=== PATIENT | female | born 1945 | race Caucasian/White ===

== ENCOUNTER → 2018-09-15 15:38 | Outpatient (CLI) | payer MEDICARE, BC | END | disposition home or self-care (01) | LOC: D.MAMMO 15:38 | DX: Z12.31 Encounter for screening mammogram for malignant neoplasm of breast (principal) ==

== ENCOUNTER 2019-03-05 19:26 | Inpatient (IN) | payer MEDICARE ==
[~2019-03-05] VITALS: Ht 165.1 cm; Wt 113.4 kg
[2019-03-05] MEDS ORDERED: ULTRAM50 MG PO (19:49)
[2019-03-05] MEDS ORDERED: NAPROSYN500 MG PO (19:49)
[2019-03-05] MEDS ORDERED: GLYCOPYRROL PO (19:50)
[2019-03-05] MEDS ORDERED: COZAAR100 MG PO (19:50)
[2019-03-05] MEDS ORDERED: CATAPRES0.2 MG PO (19:50)
[2019-03-05] MEDS ORDERED: ASCORBIC ACID500 MG PO (19:51)
[2019-03-05] MEDS ORDERED: ZOCOR40 MG PO (19:51)
[2019-03-05 20:45] LABS: BASOPHILS 0.1 % (0-2); EOSINOPHILS 0 % (0-7); HEMATOCRIT 50.8 % (36.0-48.0); HEMOGLOBIN 17.4 g/dL (12-16); IMMATURE GRANULOCYTES 0.7 % (0-5); MCH 31.5 pg (26.0-34.0); MCHC 34.3 g/dL (31.0-37.0); MONOCYTES 5.1 % (2-11); NEUTROPHILS 82.1 % (40-80); PLATELET COUNT 217 10x3/uL (130-400); RBC 5.52 10x6/uL (4.00-5.40); RDW 13.3 % (11.5-14.5); WBC 15.2 10x3/uL (4.8-10.8)
[2019-03-05 20:53] LABS: ALBUMIN 3.7 g/dL (3.4-5.0); ANION GAP 20.3 mmol/L (8-16); BILIRUBIN - TOTAL 0.73 mg/dL (0.2-1.3); CALCIUM 10.3 mg/dL (8.5-10.1); CARBON DIOXIDE 22.7 mmol/L (21.0-32.0); CREATININE - SERUM 1.1 mg/dL (0.6-1.3); PROTEIN - SERUM 7.6 g/dL (6.4-8.2)
[2019-03-05 21:21] LABS: APPEARANCE CLEAR (CLEAR); BILIRUBIN NEGATIVE (NEGATIVE); COLOR YELLOW (YELLOW); GLUCOSE NEGATIVE (NEGATIVE); KETONE MODERATE mg/dL (NEGATIVE); NITRITE NEGATIVE (NEGATIVE); PROTEIN NEGATIVE (NEGATIVE); UROBILINOGEN NORMAL (NORMAL)
--- NOTE | 2019-03-05 21:42 | NUR ---
PT VOMITING, ORDER FOR ZOFRAN 8MG IV PER EDP DAVID.
--- NOTE | 2019-03-05 22:07 | NUR ---
PT TO RADIOLOGY.
--- NOTE | 2019-03-05 22:21 | NUR ---
PT RETURNED FROM RADIOLOGY.
--- NOTE | 2019-03-05 23:18 | NUR ---
PT GIVEN BLANKETS. DENIES ANY FURTHER NEEDS AT THIS TIME.
[2019-03-06 01:48] VITALS: BP 145/763
--- NOTE | 2019-03-06 02:18 | NUR ---
PT TO FLOOR VIA WHEELCHAIR. A/O X 4. UP AB CYNTHIA. FAMILY AT BEDSIDE. DENIES NAUSEA AND VOMITTING AT THIS TIME. IV TO L HAND WITH NS AND LEVAQUIN INFUSING. IV PATENT, NO REDNESS OR EDEMA NOTED. DRSG C/D/I. BREATHING EVEN AND UNLABORED. RM AIR. SKIN PINK, WARM, INTACT. KRISTINA SCARS TO BREAST. TELE APPLIED. DENIES FURTHER NEEDS AT THIS TIME. BED LOWERED AND LOCKED. CL IN REACH. WILL CTM.
[2019-03-06 02:23] VITALS: BP 145/73; BMI 41.6
[2019-03-06 07:23] VITALS: Ht 165.1 cm; Wt 113.4 kg
--- NOTE | 2019-03-06 07:27 | NUR ---
REPORT RECEIVED. WILL CONTINUE WITH POC. PT CURRENTLY LYING SUPINE. CALL LIGHT W/I REACH. PT IS AAO AND UP AD CYNTHIA. RR EVEN AND UNLABORED ON RA. NS INFUSING @100ML/HR VIA L.HAND PIV. NO S/S OF DISTRESS NOTED. PT DENIES ANY NEEDS. WILL CTM.
[2019-03-06 07:48] VITALS: BP 157/77
[2019-03-06 08:16] LABS: BASOPHILS 0.1 % (0-2); EOSINOPHILS 0 % (0-7); HEMOGLOBIN 15.3 g/dL (12-16); IMMATURE GRANULOCYTES 0.3 % (0-5); LYMPHOCYTES 11.4 % (15-50); MCH 31.5 pg (26.0-34.0); MCV 92.8 fL (80.0-100.0); MEAN PLATELET VOLUME 11.4 fL (7.4-10.4); MONOCYTES 7.9 % (2-11); NEUTROPHILS 80.3 % (40-80); RBC 4.85 10x6/uL (4.00-5.40); RDW 13.5 % (11.5-14.5); WBC 17.3 10x3/uL (4.8-10.8)
[2019-03-06 08:17] LABS: PLATELET COUNT 262 10x3/uL (130-400)
[2019-03-06 08:30] LABS: ALBUMIN 3.1 g/dL (3.4-5.0); ANION GAP 15.9 mmol/L (8-16); BILIRUBIN - TOTAL 0.56 mg/dL (0.2-1.3); CALCIUM 9.9 mg/dL (8.5-10.1); CREATININE - SERUM 1.1 mg/dL (0.6-1.3); MAGNESIUM - SERUM 1.5 mg/dL (1.8-2.4); POTASSIUM - SERUM 3.9 mmol/L (3.5-5.1); PROTEIN - SERUM 6.8 g/dL (6.4-8.2)
[2019-03-06 15:53] VITALS: BP 157/95
--- NOTE | 2019-03-06 19:26 | NUR ---
GREETED PATIENT AND INTRODUCED MYSELF. PATIENT IS LAYING IN BED AND DENIES ANY FURTHER NEEDS AT THIS TIME. CALL LIGHT IN REACH.
[2019-03-06 20:22] VITALS: BP 140/60
--- NOTE | 2019-03-06 21:35 | MORECARE ---
CASE MANAGEMENT DISCHARGE SUMMARY PATIENT: SANDRA MADRID UNIT: [id number] ADM DATE: 03/05/19 AGE: 73 : 45 SEX: F ROOM/BED: D.1201 AUTHOR: NATYDOC PHYSICIAN: REFERRING PHYSICIAN: KATI UMANA MD DATE OF SERVICE: 03/06/19 Discharge Plan Patient Name: SANDRA MADRID Facility: [facility]:[place] : 1945 Planned Disposition: Home Anticipated Discharge Date: Discharge Date: Expected LOS: Initial Reviewer: [email or web address] Initial Review Date: 03/06/2019 Generated: 03/06/19 10:35 pm Comments DCP- Discharge Planning Updated by [email or web address]: Mary Grace Miranda on 03/06/19 8:[address] Patient Name: SANDRA MADRID Admission Status: ER Accout number: [id number] Admission Date: 03-05-2019 : 1945 Admission Diagnosis:NAUSEA WITH VOMITING, UNSPECIFIED Attending: KATI UMANA Current LOS: 1 Anticipated DC Date: Planned Disposition: Home Primary Insurance: [employer] MEDICARE PPO or HMO Discharge Planning Comments: CM met with patient at bedside after explaining CM role and obtaining verbal consent. Patient lives at home alone and plans to return there upon discharge. Patient feels this would be a safe discharge. CM discussed availability / needs of home health and medical equipment. Patient denies any discharge needs at this time CM will continue to follow and assist as needed with discharge planning / needs. [place] Folder: Mary Grace Miranda DCPIA - Discharge Planning Initial Assessment Updated by [email or web address]: Mary Grace Miranda on 03/06/19 9:33 pm * Is the patient Alert and Oriented? Yes * How many steps to enter\exit or inside your home? * PCP LYNDSAY * Pharmacy [facility] * Preadmission Environment Home Alone * ADLs Independent * Other Equipment CANE * List name and contact numbers for known caregivers / representatives who currently or will assist patient after discharge: REJI MCCAIN-KOVSRS - NIECE- [phone] * Verbal permission to speak to the caregivers and representatives has been obtained from the patient. N/A * Community resources currently utilized None * Additional services required to return to the preadmission environment? No * Can the patient safely return to the preadmission environment? Yes * Has this patient been hospitalized within the prior 30 days at any hospital? No Patient Name: SANDRA MADRID Page [id number] at 2135 All edits/amendments must be made on the electronic document DICTATION DATE: 03/06/192133 CUTTING INSPECTOR: AMAIRANI 03/06/192133 RPT#: [id number] DC DATE: STATUS: ADM IN [facility] [address] [place] [address] END OF REPORT
[2019-03-07 00:40] VITALS: BP 131/44
[2019-03-07 04:00] VITALS: BP 137/65
[2019-03-07 08:46] VITALS: BP 111/42
--- NOTE | 2019-03-07 10:04 | NUR ---
MORNING ASSESSMENT COMPLETE. SEE ASSESSMENT FLOWSHEET FOR FURTHER DETAILS. PT LYING IN BED AAO X4 TO PERSON, PLACE, TIME, AND SITUATION. DENIES NEEDS AT THIS TIME. CL IN REACH. SIDE RAILS UP X3 FOR PT SAFETY. BED IN LOWEST POSITION.
--- NOTE | 2019-03-07 14:05 | HP ---
PATIENT: SANDRA MADRID MEDICAL RECORD: [id number] ACCOUNT: [id number] LOCATION:[facility] D.1201 : 45 ADMISSION DATE: 03/05/19 PCP: KATI UMANA MD HISTORY AND PHYSICAL EXAMINATION DATE OF ADMISSION: 03/05/2019 CHIEF COMPLAINT: Nausea, vomiting, diarrhea for 2 weeks. HISTORY OF PRESENT ILLNESS: This is a 73-year-old female who I follow for hypertension, hyperlipidemia, fibromyalgia. She states she went to her executive admin a few weeks ago for hyperhidrosis and he prescribed Robinul 2 mg twice a day. She started taking it and about 2 weeks ago she started having nausea, vomiting, and diarrhea. She had constipation before that and took some MiraLax and the constipation was resolved. Since then, she has been unable to hold things down due to nausea and vomiting. She was actively vomiting in the Emergency Department. Her white count was 15,200. Comprehensive metabolic panel and UA were okay. CT of the abdomen and pelvis, apparently there was a preliminary report of some colitis, although the final report by the radiologist said there was nothing acute. The patient was admitted. PAST MEDICAL HISTORY: Hypertension, hyperlipidemia, fibromyalgia, glaucoma, asthma/COPD. PAST SURGICAL HISTORY: Hysterectomy, appendectomy, cholecystectomy, breast reduction. ALLERGIES: DIONICIO INHIBITORS HAS CAUSED A COUGH. HABITS: No tobacco, alcohol or drugs. FAMILY HISTORY: Both parents are . HOME MEDICATIONS: Naproxen 500 mg 2 pills daily, losartan 100 mg daily, tramadol 50 mg 2 pills 4 times a day, clonidine 0.2 mg twice a day, simvastatin 40 mg once a day, Ventolin HFA 2 puffs every 4 to 6 hours p.r.n., Advair twice a day, latanoprost 0.005% eye drops both eyes bedtime, Timolol 0.5% eye drops once a day and she was prescribed Robinul 2 mg to take twice a day. SOCIAL HISTORY: She lives alone and is retired. REVIEW OF SYSTEMS: GENERAL: No major weight changes. HEENT: No particular sinus or allergy problems. RESPIRATORY: She has some reactive airway disease and takes Advair and Ventolin. CARDIAC: No history of coronary artery disease. GASTROINTESTINAL: No significant problems there. GENITOURINARY: No significant problems there. MUSCULOSKELETAL: She has fibromyalgia. NEUROLOGIC: No migraines or seizures. PSYCHIATRIC: No depression or melancholia. PHYSICAL EXAMINATION: VITAL SIGNS: Temperature 97.3, pulse 114, respirations 20, blood pressure HISTORY AND PHYSICAL [id number] SANDRA MADRID 173/75. GENERAL: She is awake and alert this morning. She does not appear in acute distress. SKIN: Warm and dry. HEENT: Grossly within normal limits. NECK: Supple. HEART: Regular rate and rhythm. LUNGS: Clear. ABDOMEN: There is some mild tenderness on the left side. No guarding, no rebound, no mass. EXTREMITIES: No edema. LABORATORY DATA: CBC showed a white count of 15,200, hemoglobin 17.4, hematocrit 50.8. Basic metabolic panel is all normal. Liver functions are normal. Urinalysis is normal. CT of abdomen and pelvis, final report shows nothing acute. ASSESSMENT: 1. Nausea, vomiting, diarrhea. 2. Dehydration. PLAN: IV fluids, clear liquids, stop the Robinul, continue her other usual home medications. Hopefully, discharge soon. TRANSINT:[id number] Voice Confirmation ID: [id number] DOCUMENT ID: [id number] KATI UMANA MD at 1405 CC: [id number] DICTATION DATE: 03/07/19 1214 BRAILLE CODER: 03/07/19 1331 ADM IN [facility] [address] [place] [id number]
--- NOTE | 2019-03-07 17:13 | NUR ---
PT D/C HOME. WENT OVER ALL D/C INSTRUCTIONS- PT STATES UNDERSTANDING. LEFT WITH ALL PERSONAL BELONGINGS
--- NOTE | 2019-03-08 11:07 | MORECARE ---
CASE MANAGEMENT DISCHARGE SUMMARY PATIENT: SANDRA MADRID UNIT: [id number] ADM DATE: 03/05/19 AGE: 73 : 45 SEX: F ROOM/BED: D.1201 AUTHOR: NATYDOC PHYSICIAN: REFERRING PHYSICIAN: KATI UMANA MD DATE OF SERVICE: 03/08/19 Discharge Plan Patient Name: SANDRA MADRID Facility: [facility]:[place] : 1945 Planned Disposition: Home Anticipated Discharge Date: Discharge Date: 03/07/2019 Expected LOS: Initial Reviewer: [email or web address] Initial Review Date: 03/06/2019 Generated: 03/08/19 12:06 pm Comments DCP- Discharge Planning Updated by [email or web address]: Mary Grace Miranda on 03/06/19 8:[address] Patient Name: SANDRA MADRID Admission Status: ER Accout number: [id number] Admission Date: 03-05-2019 : 1945 Admission Diagnosis:NAUSEA WITH VOMITING, UNSPECIFIED Attending: KATI UAMNA Current LOS: 1 Anticipated DC Date: Planned Disposition: Home Primary Insurance: [employer] MEDICARE PPO or HMO Discharge Planning Comments: CM met with patient at bedside after explaining CM role and obtaining verbal consent. Patient lives at home alone and plans to return there upon discharge. Patient feels this would be a safe discharge. CM discussed availability / needs of home health and medical equipment. Patient denies any discharge needs at this time CM will continue to follow and assist as needed with discharge planning / needs. Dispatcher Maintenance Service: Mary Grace Miranda DCPIA - Discharge Planning Initial Assessment Updated by [email or web address]: Mary Grace Miranda on 03/06/19 9:33 pm * Is the patient Alert and Oriented? Yes * How many steps to enter\exit or inside your home? * PCP LYNDSAY * Pharmacy [facility] * Preadmission Environment Home Alone * ADLs Independent * Other Equipment CANE * List name and contact numbers for known caregivers / representatives who currently or will assist patient after discharge: REJI MCCAIN-KOVSRS - NIECE- [phone] * Verbal permission to speak to the caregivers and representatives has been obtained from the patient. N/A * Community resources currently utilized None * Additional services required to return to the preadmission environment? No * Can the patient safely return to the preadmission environment? Yes * Has this patient been hospitalized within the prior 30 days at any hospital? No Last DP export: 03/06/19 8:35 p Patient Name: SANDRA MADRID Page [id number] at 1107 All edits/amendments must be made on the electronic document DICTATION DATE: 03/08/191105 METAL WIRE TECHNICIAN: AMAIRANI 03/08/191105 RPT#: [id number] DC DATE:03/07/19 STATUS: DIS IN [facility] [address] [place] [address] END OF REPORT
== END 2019-03-07 17:14 | disposition home or self-care (01) | DRG 641 ==
LOC: D.ER 19:26 → D.M3 23:46
PROVIDERS: Family Medicine; ADMIT Family Medicine; ATTEND Family Medicine
DX: E86.0 Dehydration (principal); I10 Essential (primary) hypertension; E78.5 Hyperlipidemia, unspecified; M79.7 Fibromyalgia; J44.9 Chronic obstructive pulmonary disease, unspecified; R11.2 Nausea with vomiting, unspecified